=== PATIENT | male | born 1985 | race Caucasian/White ===

== ENCOUNTER → 2016-11-13 | Outpatient (CLI) | payer BC ==
[~2016-11-13] MED LIST: FLOMAX0.4 M1 PO; VOLTAREN50 MG PO; ZOFRAN PO
--- NOTE | ~2016-11-13 | CT2 ---
[facility] A Service [facility] RADIOLOGY TEXT RESULTS PATIENT: CASS EM LOCATION: [facility] : [birth year] UNIT #: [id number] AGE: [address]: SIMONA WATKINS SEX: M ORDER DR: [id number] [place] [id number] O MR#: [id number] Acc #: [id number] NAME: CASS EM : 1985 SEX: M STUDY DATE/TIME: 11/13/2016 16:06 UNIT: [facility] ROOM: STUDY DESCRIPTION: CT Abd and Pelv W Cont Attending Physician: Una Watkins Aprn Referring Physician: Una Watkins Aprn Ordering Physician: Staff Doctor Not On Primary Care Physician: Una Watkins Aprn MEDICAL IMAGING REPORT This report is preliminary unless electronic signature is present. EXAM CT of the abdomen and pelvis with contrast. INDICATIONS Right lower quadrant pain. Concern for hernia. TECHNIQUE CT of the abdomen and pelvis was performed following the administration of oral and IV contrast. Coronal and sagittal reformatted images were obtained. This CT exam was performed with one or more of the following radiation dose reduction techniques: automatic exposure control, adjustment of mA and/or kV according to patient size, and iterative reconstruction. COMPARISON Comparison with 03/03/2013. FINDINGS The lung bases are clear. The liver is unremarkable. The gallbladder and spleen are unremarkable. The kidneys, adrenal glands and pancreas are unremarkable. PELVIS: There is a small fat-containing right inguinal hernia which is unchanged in size since 2012. The appendix is normal. There is no free fluid in the pelvis. The colon is unremarkable. The bone windows are unremarkable. IMPRESSION Stable small fat-containing right inguinal hernia. Dictated by... [facility] A Service [facility] RADIOLOGY TEXT RESULTS PATIENT: CASS EM LOCATION: [facility] : 83 UNIT #: [id number] AGE: [address]: SIMONA WATKINS SEX: M ORDER DR: Román R. Clark, M.D. THIS IS AN ELECTRONICALLY VERIFIED REPORT Román Clark M.D. at 11/14/2016 10:10 AM DAISY/roe TD: 11/13/2016 23:54 JOB #: [id number] MEDICAL IMAGING REPORT Page 1 of 1
== END | disposition home or self-care (01) ==
LOC: SCT 14:52
DX: K40.90 Unilateral inguinal hernia, without obstruction or gangrene, not specified as recurrent (principal)
CPT/HCPCS: 74177; Q9967